=== PATIENT | female | born 1960 | race Caucasian/White ===

== ENCOUNTER 2016-07-14 06:54 | Day surgery (SDC) | payer OTHER ==
[~2016-07-14] VITALS: Ht 162.6 cm; Wt 95.5 kg
[~2016-07-14 06:54] MED LIST: ALBU18HF INH; PHEN37.53 PO; SITA1TBM7 PO
[2016-07-14 07:53] VITALS: BP 148/95
[2016-07-14] MEDS ORDERED: LACTATED RINGERS 1,000 ML IV SCH (08:00)
[2016-07-14] MEDS ORDERED: FENTANYL PF 250 MCG/5ML ONE (08:17)
[2016-07-14] MEDS ORDERED: MIDAZOLAM 1 MG/ML, 2ML ONE (08:17)
[2016-07-14] MEDS ORDERED: COCAINE TOPICAL SOLN 4%, 4ML ONE (08:38)
[2016-07-14] MEDS ORDERED: LIDOCAINE 1%-EPI 1:100K, 50ML ONE (08:38)
[2016-07-14] MEDS ORDERED: OXYMETAZOLINE NASAL SPRAY 0.05%, 15ML ONE (08:38)
[2016-07-14] MEDS ORDERED: MUPIROCIN OINT 2%, 22GM ONE (08:38)
[2016-07-14] MEDS ORDERED: LIDOCAINE/PF 1%, 30ML ONE (08:39)
[2016-07-14] MEDS ORDERED: ONDANSETRON 2MG/ML, 2ML ONE (08:50)
[2016-07-14] MEDS ORDERED: PROPOFOL 10 MG/ML, 20ML ONE (08:50)
[2016-07-14] MEDS ORDERED: ROCURONIUM 10 MG/ML ONE (08:50)
[2016-07-14] MEDS ORDERED: DEXAMETHASONE 4 MG/ML, 1ML ONE (08:50)
[2016-07-14] MEDS ORDERED: EPHEDRINE 50 MG/ML, 1ML ONE (08:50)
[2016-07-14] MEDS ORDERED: ACETAMINOPHEN 325 MG TABLET PO PRN (10:00)
[2016-07-14] MEDS ORDERED: OXYcodone 5 MG/5 ML ORAL.SOL UDC PO PRN (10:00)
[2016-07-14] MEDS ORDERED: PROMETHAZINE 25 MG/ML, 1ML IV PRN (10:00)
[2016-07-14] MEDS ORDERED: FENTANYL PF 100 MCG/2ML ONE (10:40)
[2016-07-14] MEDS ORDERED: OXYcodone 5 MG/5 ML ORAL.SOL UDC ONE (10:41)
[2016-07-14] MEDS: FENTANYL PF 100 MCG/2ML IV PRN ×2 (10:42→10:47)
== END 2016-07-14 13:30 | disposition home or self-care (01) ==
LOC: OUT 06:54
PROVIDERS: ATTEND Otolaryngology Facial Plastic Surgery
DX: J34.2 Deviated nasal septum (principal); J32.0 Chronic maxillary sinusitis; J34.89 Other specified disorders of nose and nasal sinuses; J39.2 Other diseases of pharynx; F17.210 Nicotine dependence, cigarettes, uncomplicated; E11.9 Type 2 diabetes mellitus without complications; J44.9 Chronic obstructive pulmonary disease, unspecified
CPT/HCPCS: 30465; 30520; 31256; 42804; 82962; 88305; J1100; J2250; J2405; J2704; J3010; J7120; J3490